=== PATIENT | male | born 1935 | race Caucasian/White ===

== ENCOUNTER 2017-07-04 08:43 | Emergency (ER) | payer OTHER ==
[~2017-07-04] VITALS: Ht 170.2 cm; Wt 77.4 kg
[~2017-07-04 08:43] MED LIST: ASPIR-LOW81 M1 PO; CALCIUM 600 +1 EACH PO; LIPITOR20 MG PO; NIASPAN500 MG PO; PERCOCET 5/31 TABLET PO; PLAVIX75 MG PO; PROTONIX40 MG PO; TOPROL XL50 MG PO; Toprol XL PO
[2017-07-04 09:17] LABS: HEMATOCRIT 42.6 % (38.0-50.0); HEMOGLOBIN 14.8 G/DL (12.5-16.6); MCHC 34.7 G/DL (30.0-36.0); MCV 89.3 FL (86-99); PLATELET COUNT 176 K/uL (156-360); RBC DIS.WIDTH-SD 42.5 % (39-53); RED BLOOD COUNT 4.77 M/uL (4.00-5.50); WHITE BLOOD COUNT 19.9 K/uL (4.1-10.2)
[2017-07-04 09:25] LABS: CHLORIDE 98 mEq/L (99-109); POTASSIUM 4.1 mEq/L (3.7-5.4); SODIUM 132 mEq/L (136-147)
[2017-07-04 09:27] LABS: GLUCOSE 125 mg/dL (70-99)
[2017-07-04 09:31] LABS: CREATININE 1.2 mg/dL (0.6-1.3); GFR ESTIMATE (CALCULATED) > 59 mL/min/ (58.99-99999)
[2017-07-04 09:32] LABS: UREA NITROGEN (BUN) 21 mg/dL (9-23)
[2017-07-04 09:41] LABS: TROP-I INTERPRETATION NEGATIVE; TROPONIN-I < 0.01 ng/mL (0.0-0.30)
[2017-07-04 10:04] LABS: DIGOXIN 0.7 ng/mL (0.8-2.0)
[2017-07-04] MEDS ORDERED: CIPRO500 MG PO (11:15)
[2017-07-04] MEDS ORDERED: ZOFRAN4 MG PO (11:15)
[2017-07-04] MEDS ORDERED: ZITHROMAX Z-PA250 MG PO (11:28)
[2017-07-04 11:49] VITALS: BP 103/60
== END 2017-07-04 11:59 | disposition home or self-care (01) ==
LOC: EME 08:43
DX: R11.2 Nausea with vomiting, unspecified (principal); R19.7 Diarrhea, unspecified; J18.9 Pneumonia, unspecified organism; E78.5 Hyperlipidemia, unspecified; I10 Essential (primary) hypertension; I25.10 Atherosclerotic heart disease of native coronary artery without angina pectoris; I48.91 Unspecified atrial fibrillation; K21.9 Gastro-esophageal reflux disease without esophagitis; Z95.5 Presence of coronary angioplasty implant and graft; Z79.02 Long term (current) use of antithrombotics/antiplatelets; Z85.46 Personal history of malignant neoplasm of prostate
CPT/HCPCS: 71046; 80048; 80162; 84484; 85027; 87506; 93005; 99281; 99285; J0780; J7040